=== PATIENT | male | born 1955 ===

== ENCOUNTER 2017-08-11 07:44 | Emergency (ER) | payer BC ==
[2017-08-11 07:47] VITALS: BMI 24.3
[2017-08-11 07:49] VITALS: BP 128/80; PULSE 88; RESP 20; TEMP 97.4; O2SAT 97
--- NOTE | 2017-08-11 08:37 | ED PDOC ---
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 denies: Chills, Nausea, Vomiting, Loss Of Appetite, Back Pain Alleviating Factors: None Additional History Per: Prior Records Additional Complaint(s): 62yo male c/o ongoing urinary problems with hesitancy and lower abdominal pressure, presents today on rec Dr Araceli SOARES who ordered CT abd/pelv as outpatient performed 08/09 with results concerning for hydronephrosis with bladder obstruction possible prostate malignancy. He states he saw urologist Dr Austin several months ago but unsure on workup or prior recommendations. Denies fever, vomiting, diarrhea. He does note new onset of fatigue and generalized malaise. Past Medical History Reviewed: Historical Data, Nursing Documentation, Vital Signs Vital Signs: Last Vital Signs Temp 97.4 F L 08/11/17 07:47 Pulse 88 08/11/17 07:47 Resp 20 08/11/17 07:47 BP 128/80 08/11/17 07:47 Pulse Ox 97 08/11/17 07:47 - Medical History PMH: Gastritis - Surgical History Surgical History: Appendectomy Other surgeries: ? urinary tract surgery 20+ years ago after trauma - Family History Family History: States: Unknown Family Hx - Social History Current smoker - smoking cessation education provided: No - Immunization History Hx Tetanus Toxoid Vaccination: No Hx Influenza Vaccination: No Hx Pneumococcal Vaccination: No - Home Medications Home Medications: Ambulatory Orders Medication Instructions Recorded Ondansetron [Zofran Odt] 4 mg PO ASDIR PRN #20 odt 04/07/16 Famotidine [Pepcid] 20 mg PO DAILY #14 tab 08/20/16 Phenazopyridine [Pyridium] 100 mg PO BID #8 tab 08/11/17 Tamsulosin [Flomax] 0.4 mg PO DAILY #10 cap 08/11/17 - Allergies Allergies/Adverse Reactions: Allergies Allergy/AdvReac Type Severity Reaction Status Date / Time Penicillins Allergy RASH Verified 04/07/16 10:41 Review of Systems Constitutional: Positive for: Weakness, Malaise Cardiovascular: Negative for: Chest Pain, Palpitations Respiratory: Negative for: Cough, Shortness of Breath Genitourinary Male: Positive for: Frequency, Other (hesitancy). Negative for: Penile Discharge, Scrotal Pain Musculoskeletal: Negative for: Neck Pain, Arm Pain, Back Pain, Leg Pain Skin: Negative for: Rash, Lesions, Jaundice Neurological: Positive for: Weakness (generalized), Headache, Dizziness Psych: Negative for: Anxiety Physical Exam - Reviewed Nursing Documentation Reviewed: Yes Vital Signs Reviewed: Yes - Physical Exam Appears: Positive for: Well, Non-toxic, No Acute Distress Head Exam: Positive for: ATRAUMATIC, NORMAL INSPECTION, NORMOCEPHALIC Skin: Positive for: Normal Color, Warm, DRY Eye Exam: Positive for: EOMI, Normal appearance, PERRL ENT: Positive for: Normal ENT Inspection Neck: Positive for: Normal, Painless ROM Cardiovascular/Chest: Positive for: Regular Rate, Rhythm Respiratory: Positive for: CNT, Normal Breath Sounds Gastrointestinal/Abdominal: Positive for: Bowel Sounds, Soft, Tenderness ( suprapubic) Back: Positive for: Normal Inspection Extremity: Positive for: Normal ROM Neurologic/Psych: Positive for: Alert, Oriented - Laboratory Results Result Diagrams: 08/11/17 08:38 08/11/17 08:38 - ECG O2 Sat by Pulse Oximetry: 97 Medical Decision Making Medical Decision Making: CT results from outpt imaging scanned into chart Will check bloodwork r/o ARF, obtain bladder scan and possible rosado Time: 821 --EKG --CMP --Lipase --PSA --CBC w/ diff --Urine Culture --Bladder Scan PRN --Urinalysis --Reevaluation Time: 837 --Prostate Specific Antigen: 4.95 (High) Time: 944 --Renal US Time: 1136 --Renal US FINDINGS: RIGHT KIDNEY: Measures: 11.6 cm. Normal in size, contour and echogenicity. Moderate hydronephrosis. No stone or solid mass lesion visualized. LEFT KIDNEY: Measures: 11.3 cm. Normal in size, contour and echogenicity. Moderate hydronephrosis. No stone or solid mass lesion visualized. OTHER FINDINGS: The urinary bladder is markedly distended. The prevoid urinary volume is 895.5 9 mL. Bilateral ureteral jets are not visualized on color flow imaging. IMPRESSION: Moderate bilateral hydronephrosis which may be related to an over distended urinary bladder. Time: 1151 --Rosado Urinary Catheter Time: 1203 --Nitrous Oxide RESP Time: 1205 --Labs and blood work came back normal but it does appear that urine is being retained within the bladder. --Spoke to his urologist Dr Austin who recommends catheter placed in for urine to be drained into a bag which he will go home with and follow up with him to remove the catheter for further evaluation, biopsy, and imaging studies. -- Attempted rosado placement with nitrous oxide for anxiolysis and better procedural tolerance, both 14F and 16F coude attempted without success. Patient is urinating freely in ED, now >1L intermittently. Rediscussed with Dr Austin urology 215p he states since urinating can go home on flomax, double dose today, pyridium and will see him in office tomorrow morning for definitive care. Explained again via multi operation forming machine setter indications for return to ER especially inability to ambulate, lower abd pain, failure to urinate >6 hr or any concern. Per Dr Austin patient has had poor compliance with followup in past. Explained vital importance of followup now to rule out potential prostate cancer. Time: 1428 --Flomax 0.8 mg PO Time: 1434 Upon provider reevaluation patient is feeling better, is medically stable, and requires no further treatment in the ED at this time. Patient will be discharged home Rx for Pyridium 100 mg and Flomax 0.4 mg with. Counseling was provided and all questions were answered regarding diagnosis and need for follow up with Dr. Isabel Giron and Dr. Bill Austin MD. There is agreement to discharge plan. Return if symptoms persist or worsen. Clinical Impression: Urinary retention and enlarged prostate with urinary obstruction Scribe~Attestation: Documented by Louann Hood, acting as a scribe for Gene Roland DO. Provider Scribe~Attestation: All medical record entries made by the Scribe were at my direction and personally dictated by me. I have reviewed the chart and agree that the record accurately reflects my personal performance of the history, physical exam, medical decision making, and the department course for this patient. I have also personally directed, reviewed, and agree with the discharge instructions and disposition. Disposition - Clinical Impression Clinical Impression: Urinary retention, Enlarged prostate with urinary obstruction - Patient ED Disposition Is Patient to be Admitted: No Counseled Patient/Family Regarding: Studies Performed, Diagnosis, Need For Followup, Rx Given - Disposition Referrals: Isabel Giron MD [Primary Care Provider] - Bill Austin MD [Non-Staff] - Disposition: Routine/Home Disposition Time: 14:34 Condition: STABLE Additional Instructions: Return to any ER if unable to urinate. Take medication as directed. Call Dr Austin tomorrow morning for further care, you will likely need surgery or other treatment for this issue. Failure to followup could cause damage to your kidneys, bladder or other abdominal organs. Espanol: Regrese a cualquier ER si no puede orinar. [place] la medicacin segn las indicaciones. Llame al Dr. Norman adameana por la maana para recibir ms atencin, es probable que necesite ciruga u otro tratamiento para jazmyn problema. La falta de seguimiento podra causar daos en los riones, la vejiga u otros rganos abdominales. El Dr. Austin conoce colon julee y espera colon llamada por la maana. Existe la posibilidad de que tenga cncer de prstata y necesite ms pruebas. Prescriptions: Phenazopyridine [Pyridium] 100 mg PO BID #8 tab Tamsulosin [Flomax] 0.4 mg PO DAILY #10 cap Instructions: Urinary Retention in Men (ED) Forms: [facility] [facility] ([place]), [facility] ED School/Work Excuse Print Language: UKRAINIAN
[2017-08-11 08:47] LABS: BASO # 0.1 K/uL (0.0-0.2); EOS # 0.3 K/uL (0.0-0.7); EOS % 4.7 % (0.0-4.0); HEMOGLOBIN 12.4 g/dL (12.0-18.0); LYMPH # 1.4 K/uL (1.0-4.3); LYMPH % 19.8 % (20.0-40.0); MEAN CORPUSCULAR HEMOGLOBIN 30.9 pg (27.0-31.0); MEAN CORPUSCULAR HGB CONC 32.9 g/dL (33.0-37.0); MONO # 0.5 K/uL (0.0-0.8); NEUT # 4.7 K/uL (1.8-7.0); NEUT % 67.5 % (50.0-75.0); RBC 4.01 Mil/uL (4.40-5.90)
[2017-08-11 08:54] LABS: ALB/GLOB RATIO 1.2 (1.0-2.1); ALBUMIN 4.4 g/dL (3.5-5.0); CALCIUM 9.3 mg/dL (8.4-10.2)
[2017-08-11 09:05] LABS: URINE BILIRUBIN NEGATIVE (NEGATIVE); URINE BLOOD NEGATIVE (NEGATIVE); URINE CLARITY CLEAR (Clear); URINE COLOR STRAW (YELLOW); URINE GLUCOSE (UA) NEG (Normal); URINE LEUKOCYTE ESTERASE NEG Leu/uL (Negative); URINE NITRATE NEGATIVE (NEGATIVE); URINE PROTEIN NEGATIVE (NEGATIVE); URINE UROBILINOGEN 0.2-1.0 mg/dL (0.2-1.0)
--- NOTE | 2017-08-11 10:42 | CARD ---
APPROVED REPORT EKG Measurement Heart [id number] <Conclusion> Normal sinus rhythm Normal ECG
--- NOTE | 2017-08-11 11:38 | US ---
PROCEDURE: Ultrasound of the Kidneys HISTORY: r/o hydronephrosis COMPARISON: CT abdomen and pelvis from 08/20/2016. TECHNIQUE: Grayscale imaging was performed. FINDINGS: RIGHT KIDNEY: Measures: 11.6 cm. Normal in size, contour and echogenicity. Moderate hydronephrosis. No stone or solid mass lesion visualized. LEFT KIDNEY: Measures: 11.3 cm. Normal in size, contour and echogenicity. Moderate hydronephrosis. No stone or solid mass lesion visualized. OTHER FINDINGS: The urinary bladder is markedly distended. The prevoid urinary volume is 895.5 9 mL. Bilateral ureteral jets are not visualized on color flow imaging. IMPRESSION: Moderate bilateral hydronephrosis which may be related to an over distended urinary bladder.
== END 2017-08-11 15:17 | disposition home or self-care (01) ==
LOC: H.ER 07:44 → SUPCPDRO 07:44 → H.ER 15:17
DX: R33.8 Other retention of urine (principal); N13.30 Unspecified hydronephrosis; N40.1 Benign prostatic hyperplasia with lower urinary tract symptoms; Z88.0 Allergy status to penicillin